=== PATIENT | male | born 2005 | race Two or more races ===

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

== ENCOUNTER 2025-04-13 19:36 | Emergency (ER) | payer OTHER, MEDICAID ==
[~2025-04-13] VITALS: Ht 177.8 cm; Wt 54.4 kg
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
[2025-04-13 21:40] VITALS: RESP 19; O2SAT 97
[2025-04-13 21:54] LABS: Hematocrit 43.7 % (41.0-53.0); Hemoglobin 14.7 g/dL (13.5-17.5); Mean Corpuscular Hemoglobin 30.3 pg (28.0-32.0); Mean Corpuscular Volume 89.6 fL (80.0-100.0); Nucleated Red Blood Cells % 0.0 %
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
[2025-04-13 22:14] LABS: Albumin 4.8 g/dL (3.2-4.8); Alkaline Phosphatase 84 U/L (46-116); Anion Gap 11 (5-15); BUN/Creatinine Ratio 10.3 (10.0-20.0); Calcium 10.0 mg/dL (8.7-10.4); Carbon Dioxide 27 mmol/L (20-31); Chloride 101 mmol/L (98-107); Potassium 3.9 mmol/L (3.5-5.1); Sodium 139 mmol/L (136-145); Total Protein 8.1 g/dL (5.7-8.2)
[2025-04-13 22:15] LABS: Alanine Aminotransferase 46 U/L (7-40); Bilirubin, Total 1.0 mg/dL (0.2-1.0); Blood Urea Nitrogen 9 mg/dL (9-23); Glucose 118 mg/dL (74-106)
[2025-04-13 23:12] LABS: INR 1.06 (0.9-1.15); Partial Thromboplastin Time 28.2 SEC (24.5-34.5); Prothrombin Time 11.2 sec (9.3-11.8)
[2025-04-13 23:43] VITALS: BP 113/67; PULSE 94; RESP 20; TEMP 99.2; O2SAT 100
== END 2025-04-13 23:50 | disposition short-term general hospital (02) ==
LOC: ER 19:36
DX: S27.0XXA Traumatic pneumothorax, initial encounter (principal); S09.8XXA Other specified injuries of head, initial encounter; M48.52XA Collapsed vertebra, not elsewhere classified, cervical region, initial encounter for fracture; J98.2 Interstitial emphysema; V89.2XXA Person injured in unspecified motor-vehicle accident, traffic, initial encounter; Y93.I9 Activity, other involving external motion; Y92.488 Other paved roadways as the place of occurrence of the external cause; Y99.8 Other external cause status
CPT/HCPCS: 36415; 70450; 71250; 72125; 80053; 85025; 85610; 85730; 86850; 86900; 86901; 99291